=== PATIENT | female | born 1945 | race Caucasian/White ===

== ENCOUNTER → 2017-04-06 | Outpatient (CLI) | payer MEDICARE ==
[~2017-04-06] MED LIST: ASCO-184 PO; OMEG1CAP34 PO; VITA1CAP PO
== END | disposition home or self-care (01) ==
LOC: STAR 08:24
PROVIDERS: ATTEND Surgery
DX: Z01.818 Encounter for other preprocedural examination (principal)
CPT/HCPCS: 93005

== ENCOUNTER 2017-04-12 06:06 | Day surgery (SDC) | payer MEDICARE ==
[~2017-04-12] VITALS: Ht 157.5 cm; Wt 52.0 kg
[2017-04-12] MEDS ORDERED: EPINEPHRINE 1 MG/ML, 1ML ONE (06:13)
[2017-04-12] MEDS ORDERED: BUPIVACAINE 0.25% ONE (06:13)
[2017-04-12] MEDS ORDERED: LACTATED RINGERS 1,000 ML IV SCH (06:39)
[2017-04-12 06:50] VITALS: BP 185/75
[2017-04-12] MEDS ORDERED: LIDOCAINE-MPF 2% ,5ML ONE (08:35)
[2017-04-12] MEDS ORDERED: PROPOFOL 10 MG/ML, 20ML ONE (08:35)
[2017-04-12] MEDS ORDERED: FENTANYL PF 250 MCG/5ML ONE (08:35)
[2017-04-12] MEDS ORDERED: ROCURONIUM 10 MG/ML,10ML ONE (08:36)
[2017-04-12] MEDS ORDERED: SODIUM CHLORIDE 0.9% PF 10ML ONE (08:37)
[2017-04-12] MEDS ORDERED: CEFAZOLIN 1,000 MG ONE ×2 (08:37)
[2017-04-12] MEDS ORDERED: DEXAMETHASONE 4 MG/ML, 1ML ONE ×2 (08:46)
[2017-04-12] MEDS ORDERED: NEOSTIGMINE 1 MG/ML, 10ML ONE (08:59)
[2017-04-12] MEDS ORDERED: GLYCOPYRROLATE 0.2MG/1ML, 5ML ONE (08:59)
[2017-04-12] MEDS ORDERED: BUPIVACAINE/PF 0.5% INFIL ONE (09:08)
[2017-04-12] MEDS ORDERED: HYDROmorphone 1 MG/ML, 1ML IV PRN (09:30)
[2017-04-12] MEDS ORDERED: FENTANYL PF 100 MCG/2ML IV PRN (09:30)
[2017-04-12] MEDS ORDERED: ACETAMINOPHEN 325 MG TABLET PO PRN (09:30)
[2017-04-12] MEDS ORDERED: LABETALOL 5MG/ML, 20ML IV PRN (09:30)
[2017-04-12] MEDS ORDERED: ONDANSETRON 2MG/ML, 2ML IVPush PRN (09:30)
[2017-04-12] MEDS ORDERED: hydrALAzine 20 MG/ML, 1ML IV PRN (09:30)
[2017-04-12] MEDS ORDERED: MEPERIDINE/PF 25MG/0.5ML IVPush PRN (09:30)
[2017-04-12] MEDS ORDERED: PROMETHAZINE 25 MG/ML, 1ML IV PRN (09:30)
[2017-04-12] MEDS ORDERED: OXYcodone 5 MG/5 ML ORAL.SOL UDC PO PRN (09:30)
[2017-04-12] MEDS ORDERED: OXYcodone 5 MG/5 ML ORAL.SOL UDC ONE (09:33)
[2017-04-12] MEDS ORDERED: ACETAMINOPHEN 650 MG/20.3 ML UDC ONE (09:34)
== END 2017-04-12 12:55 ==
LOC: OUT 06:06
PROVIDERS: ATTEND Surgery
DX: K43.2 Incisional hernia without obstruction or gangrene (principal); Z87.39 Personal history of other diseases of the musculoskeletal system and connective tissue; Z90.710 Acquired absence of both cervix and uterus; Z98.890 Other specified postprocedural states
CPT/HCPCS: 49560; 49568; C1781; J0171; J0690; J1100; J2704; J2710; J3010; J3490; J7120